=== PATIENT | male | born 1975 | race Caucasian/White ===

== ENCOUNTER 2023-09-27 15:29 | Outpatient (REF) | payer BC, SELFPAY | END 2023-09-27 15:30 | disposition home or self-care (01) | LOC: LBN 15:29 | PROVIDERS: PCP Nurse Practitioner Adult Health; Visit Provider Family Medicine | DX: L72.8 Other follicular cysts of the skin and subcutaneous tissue; L08.89 Other specified local infections of the skin and subcutaneous tissue | CPT/HCPCS: 87070; 87205 ==

== ENCOUNTER 2024-01-02 07:24 | Day surgery (SDC) | payer BC, SELFPAY ==
--- NOTE | 2024-01-01 08:41 | W.PM.DSUDISC ---
Date of service: 01/02/24 Time of Service: 09:24 Discharge Plan Disposition Patient Disposition: Home Condition: Good Discharge Details Reason For Visit: screening colonoscopy Attending Provider: Manish Akins Primary Care Provider: Heather Trotter Home Meds and New Rx's Prescriptions: Continued buspirone 5 mg tablet 5 mg PO BID Qty: 100 1RF Rx Instructions: May increase to 10mg BID for anxiety. Excedrin Extra Strength 250-250-65 mg tablet 2 tab PO ONCE PRN (Reason: Headaches) clindamycin phosphate [Clindacin] 1 % foam 1 applic topical QHS Qty: 50 0RF Rx Instructions: Apply to hairline acne once per day fluoxetine [Prozac] 10 mg capsule 20 mg PO DAILY Rx Instructions: Start with 1 cap daily and may increase to 2 caps daily after 2 weeks Discontinued bisacodyl [Dulcolax (bisacodyl)] 5 mg tablet,delayed release (DR/EC) 5 mg PO ONCE Qty: 4 0RF Rx Instructions: Take per colonoscopy instructions provided by ordering providers office polyethylene glycol 3350 17 gram/dose powder 17 g PO ONCE Qty: 238 0RF Rx Instructions: Take per colonoscopy instructions provided by ordering providers office Discharge Instructions Instructions: Colon polyps Additional Instructions: Manish, we were able to complete your colonoscopy today without any difficulty. I hope you are comfortable and the experience was okay. I did find and removed 2 polyps today. One was medium in size, and the other was extremely small (in fact, this may not even be a true polyp). Regardless, I removed both of these without any difficulty. Both will be sent off for testing, and the information from that report will be used to inform the timing of your next colonoscopy. Those results usually take about a week or 2, and once we have them, the office will be in touch. If you have any questions in the meantime, please do not hesitate to ask. 1. If tolerated, consume a soft, low fiber diet for 1-2 days. 2[address] Do not drive, drink alcohol, operate machinery, make critical decisions, or do activities that require coordination or balance for 24 hours. 3. Because air was put into your colon during the procedure, expelling air from your rectum (passing gas or farting) is normal. 4. You may not have a bowel movement for 1-3 days because of the colonoscopy prep. This is normal. 5. Go directly to the emergency room if you notice any of the following: Develop chills (warm to touch), or if you have a thermometer and your temperature is above 101 Difficulty breathing or difficultly swallowing Persistent vomiting Severe abdominal pain, other than gas cramps Severe chest pain Black, tarry stools Any bleeding ? exceeding one tablespoon 6. Call your physician if the site where your intravenous was started becomes red, swollen, painful, and warm to touch. 7. Your physician has reviewed your pre-procedure medications. Please continue to take those medications as previously ordered. You will be given specific information/education regarding any changes to your medications before leaving. Stand Alone Forms: Anesthesia Discharge InstLeigh, Christin Winters (DSU) Activity:: Activity as Tolerated Diet:: As Tolerated Discharge Orders Discharge Orders: Discharge Order (Routine); Ordered 01/01/24 Ordered By: Manish Akins DS: Diagnosis Discharge Diagnosis (1) Encounter for screening colonoscopy: Status: Acute Asessment and Plan: Follow-up on polypectomy results
--- NOTE | 2024-01-01 08:42 | W.COLOREPORT ---
Date of service: 01/02/24 Time of Service: : Colonoscopy Report Date of procedure: 01/02/24 Pre-op diagnosis general: screening colonscopy Post-op diagnosis procedure note: other (Colon rectal polyps) Procedure: colonoscopy with polypectomy Surgeon: Manish Akins Anesthesia Type: General:No Airway Estimated blood loss (mL): 5 Pathology: other (0.5 cm rectal polyp, less than 0.25 cm polyp at 65 cm) Complications: None Disposition: same day Indications: Manish is a 48 year old man who needs a screening colonoscopy Prep: Miralax/Dulcolax Procedure Start Time: :04 Procedure End Time: : Retraction Time: 11 Findings: 0.5 cm rectal polyp, less than 0.25 cm polyp at 65 cm Procedure Description: After the induction of anesthesia, and with the patient in left lateral decubitus position, I began by performing an external anorectal exam.? Perineum and skin were normal, as was the anal verge.? There was no evidence of external hemorrhoids.? Next, I performed a digital rectal exam.? I did not appreciate any abnormal findings.? Next, I advanced a colonoscope into the rectal vault.? Within the midportion of the rectal vault was a 0.5 cm pedunculated polyp. This was removed with cold snare polypectomy. There was minimal bleeding from the polypectomy site. I performed retroflexion.? This appeared normal.? Using insufflation, I then advanced the colonoscope beyond the rectal folds and into the sigmoid colon before advancing towards the cecum.? The scope was noted to be in the cecum by identification of the ileocecal valve and appendiceal orifice.? I then began withdrawing the colonoscope using repeated irrigation as necessary for full evaluation of the colonic mucosa. Around 65 cm from the anal verge I identified a less than 0.25 cm polyp. ?It appeared flat in character. ?I was able to remove this with a cold forceps polypectomy. ?I examined the site, and there was minimal bleeding. ?Once this was completed, I continued to withdraw the scope and examine the remainder of the colonic mucosa.?Once the scope was withdrawn to the level of the rectum, great care was taken to examine portions of the rectal folds.? Finally, the scope was withdrawn and the patient was brought to the same-day surgery recovery unit as the anesthetic wore off. ?The findings and instructions were shared with the patient prior to discharge. Nerstrand Bowel Prep Nerstrand Bowel Prep Right Colon: 3 Left Colon: 3 Transverse Colon: 3 Total Score: 9
[2024-01-02 07:55] VITALS: BP 127/87; PULSE 70; RESP 16; TEMP 36.1; O2SAT 97
[2024-01-02] MEDS: Lactated Ringers 1,000 ML 80 ML IV (08:20)
--- NOTE | 2024-01-02 08:45 | W.ANESPRE ---
General Info Date of Service Date Performed: 01/02/24 Height: 5 ft 9 in Weight: 118.7 kg Body Mass Index (BMI): 38.6 Surgical Procedure: Operation Date: 01/02/24 08:50 Proposed Procedure Side Surgeon p Ariane Akins MD Meds Allergies and Home Medications Allergies Allergy/AdvReac Type Severity Reaction Status Date / Time No Known Allergies Allergy Verified 01/02/24 07:50 Home Medication ?Medication ?Instructions ?Recorded oowfzat-debwvmpsincec-ctqiawpe 250 2 tab PO ONCE PRN Headaches 08/25/22 mg-250 mg-65 mg tablet (Excedrin Extra Strength) clindamycin phosphate 1 % topical 1 applic topical QHS #50 grams 09/22/22 foam (Clindacin) buspirone 5 mg tablet 5 mg PO BID #100 tabs 10/10/23 fluoxetine 10 mg capsule (Prozac) 20 mg PO DAILY 12/15/23 Current Visit Medications: Current Medications Generic Name Dose Route Start Last Admin Trade Name Freq PRN Reason Stop Dose Admin Ringer's Solution 1,000 mls @ 80 mls/hr 01/02/24 06:00 01/02/24 08:20 IV 01/29/24 23:59 80 mls/hr INFUSION SOBEIDA Administration IV Miscellaneous Supplies 1 each 01/02/24 06:00 Iv Access IV 01/29/24 23:59 DIRECTED SOBEIDA Ondansetron HCl 4 mg 01/01/24 08:43 Ondansetron 4 Mg/2 Ml Vial IVP 01/31/24 08:42 Q4H PRN PRN Nausea / Vomiting Sodium Chloride 0 ml 01/02/24 06:00 Normal Saline Flush 10 Ml Syr IV 01/29/24 23:59 PRN PRN Sodium Chloride 0 ml 01/02/24 06:00 Normal Saline 10 Ml Vial IJ 01/29/24 23:59 DIRECTED PRN Sterile Water 0 ml 01/02/24 06:00 Water,Injection,Sterile 10 Ml Vial IJ 01/29/24 23:59 DIRECTED PRN PFSH Active Problems Active Problems: Problem Status Onset Code Encounter for screening colonoscopy Acute Z12.11 Situational anxiety Acute ~09/2023 F41.8 Infected cyst of skin Acute L72.9, L08.9 Acne Acute L70.9 BMI 37.0-37.9, adult Acute Z68.37 Obstructive sleep apnea Chronic G47.33 Medical History Medical History Headache Excedrin PRN Psychophysiologic insomnia CPAP has helped Lumbago with sciatica, right side Chronic low back pain Medical History Comments:: mother-N/V Surgical History Surgical History H/O wisdom tooth extraction (~1995) Dr Ram Tobacco Smoking/Tobacco Use Status: Never Second hand exposure: No Alcohol Alcohol Intake: current Alcohol intake frequency: a few times a month Alcohol type: beer and hard liquor Details: 2-4 times per month 1-2 at a time Substance Use Substance use: Rarely Substance use type: marijuana Details: alcohol: t-14, marijuana: t-10 Vital Signs and Lab Results Vital Signs Most Recent Vital Signs in EMR: Most Recent Vital Signs Temp Pulse Resp BP Pulse Ox 36.1 C L 70 16 127/87 97 01/02/24 07:55 01/02/24 07:55 01/02/24 07:55 01/02/24 07:55 01/02/24 07:55 Lab Results Blood Type / Crossmatch: No Data to Display Complete Blood Count: No Data to Display Complete Metabolic Panel: No Data to Display Liver Function Panel: No Data to Display Coagulation Panel: No Data to Display Cardiac Panel: No Data to Display Arterial Blood Gas: No Data to Display Venous Blood Gas: No Data to Display Pancreas Panel: No Data to Display Thyroid Panel: No Data to Display Infectious Disease: No Data to Display Blood Cultures: No Data to Display Toxicology Panel: No Data to Display Anesthesia Assessment and Plan Anesthesia History Personal History: No History of Anesthesia Complications Family History: No Family History of Anesthesia Complications Exercise Tolerance Exercise Tolerance: Metabolic Equivalents>4 Pertinent Negatives Pertinent Negatives: No Symptoms of GERD, No Major Cardiovascular Symptoms or Complaints, No Major Pulmonary Symptoms or Complaints and No History of CVA/TIA Cardiac & Pulmonary Exam Cardiac Exam: Normal S1/S2 Heart Sounds Pulmonary Exam: Clear Bilateral Breath Sounds Implantable Cardiac Device Does patient have a Pacemaker or an ICD?: No Airway Exam Known Difficult Airway: No Mallampati Class: 2 Mouth Opening: Normal (> 3cm) Thyromental Distance: Greater than 3 cm Neck Range of Motion: Full ROM Neck Circumference: Normal Teeth Condition: Normal Dentition ASA Classification ASA Score: ASA 2 Emergency Case?: No NPO Status NPO Status: NPO Clears >2 hours, Solids >8 hours Anesthesia Plan Resuscitation Status: Full Code Anesthesia Technique: General Anesthesia Airway Planned: Natural Airway Monitors Used: Standard Monitors
[2024-01-02 09:00] VITALS: BMI 38.6
--- NOTE | 2024-01-02 09:06 | BOWEL_PTH ---
PATIENT: Manish Brownlee LOC: [facility] U#:[id number] AGE/SX: 48/M ROOM: RE01/02/[address]: Manish Akins MD : 1975 BED: DIS: 01/02/2024 SPEC #: [id number] RECD: 01/02/24 12:43 STATUS: SENA RE #: [id number] MARIANN: 01/02/24 09:[address]: Manish Akins DEPT: Surgical Specimen RECD BY: Alexandra Bender ENTERED: 01/02/24 12:44 SP TYPE: Bowel OTHR DR: Heather Trotter APRN Tissues: 1 - BIOPSY BOWEL 2 - BIOPSY BOWEL Procedures: GROSS AND MICRO LEVEL 4 Comments: [id number]
[2024-01-02 09:22] VITALS: BP 111/59; PULSE 68; RESP 16; TEMP 36.4; O2SAT 96
[2024-01-02 09:47] VITALS: BP 115/85; PULSE 61; RESP 16; TEMP 36.3; O2SAT 98
--- NOTE | 2024-01-02 09:58 | W.ANESPOSTOP ---
Postoperative Evaluation Date, Time and Location Date Performed: 01/02/24 Time Performed: 09:47 Patient Location: Day Surgery Unit Vital Signs Most Recent Imported Vital Signs: Most Recent Vital Signs Temp Pulse Resp BP Pulse Ox 36.3 C L 61 16 115/85 98 01/02/24 09:47 01/02/24 09:47 01/02/24 09:47 01/02/24 09:47 01/02/24 09:47 Pain Score Most Recent Pain Score: Most Recent Pain Score Pain Level 0 01/02/24 09:47 Assessment Mental Status: Awake (Alert & Oriented to Patient Baseline) Airway and Respiratory Function: Patent airway with normal (patient baseline) respiratory exam Cardiovascular Function: Hemodynamically Stable Hydration Status: Adequately Hydrated Nausea & Vomiting: No Nausea or Vomiting Pain: Pt. Denies Any Pain Peripheral Nerve Block: Patient did not receive a nerve block
== END 2024-01-02 10:05 | disposition home or self-care (01) ==
LOC: SUR 07:25
PROVIDERS: PCP Nurse Practitioner Adult Health; Visit Provider Surgery
PROC: 0DJD8ZZ Inspection of Lower Intestinal Tract, Via Natural or Artificial Opening Endoscopic (ICD-10-PCS; CPT 45378; principal; 2024-01-02 08:45)
DX: Z12.11 Encounter for screening for malignant neoplasm of colon (principal); D12.4 Benign neoplasm of descending colon; D12.8 Benign neoplasm of rectum
CPT/HCPCS: 45385; 45380; 88305; J2704

== ENCOUNTER 2024-03-20 09:39 | Outpatient (REF) | payer BC, SELFPAY ==
--- NOTE | 2024-03-20 08:45 | SKI_PTH ---
PATIENT: Manish Brownlee LOC: [facility] U#:[id number] AGE/SX: 48/M ROOM: RE03/20/[address]: Chidi Alaniz DO : 1975 BED: DIS: 03/20/2024 SPEC #: [id number] RECD: 03/20/24 13:13 STATUS: SENA JOYCE #: [id number] MARIANN: 03/20/24 08:[address]: Chidi Alaniz DEPT: Surgical Specimen RECD BY: Alexandra Bender ENTERED: 03/20/24 13:14 SP TYPE: EPIFANIO ROWLEY DR: Heather Trotter APRN Tissues: 1 - SKIN BIOPSY(SHAVE/PUNCH) Procedures: SKIN LEVEL 4 Comments: [id number]
== END 2024-03-20 09:40 | disposition home or self-care (01) ==
LOC: LBN 09:39
PROVIDERS: PCP Nurse Practitioner Adult Health; Visit Provider Emergency Medicine
DX: L57.0 Actinic keratosis (principal); L82.1 Other seborrheic keratosis
CPT/HCPCS: 88305

== ENCOUNTER 2024-08-30 14:42 | Emergency (ER) | payer BC, SELFPAY ==
--- NOTE | 2024-08-30 14:45 | RT.EKG_ITS ---
APPROVED REPORT Exam: Resting ECG Reason for Exam: Tachycardia Patient Location: E HR:95 bpm ECG Measurements Heart Rate 95 AXIS MI 142 P -43 QRSd 93 QRS 29 QT 340 T 60 QTc 429 Conclusion Sinus rhythm...normal P axis, V-rate 60- 99 ST elev, probable normal early repol pattern...ST elevation, age<55 No Occlusion VA
[2024-08-30 14:52] VITALS: BP 105/76; PULSE 110; RESP 16; TEMP 36.2; O2SAT 97
[2024-08-30 15:03] VITALS: BP 105/76; PULSE 110; RESP 16; TEMP 36.2; O2SAT 97
--- NOTE | 2024-08-30 15:22 | W.ED.GENAD ---
Discharge Plan Disposition Patient Disposition: Home Discharge Details Clinical Impression: Nausea vomiting and diarrhea Primary Care Provider: Heather Trotter ED Provider: Christopher Hdz Home Meds and New Rx's Prescriptions: Continued Excedrin Extra Strength 250-250-65 mg tablet 2 tab PO ONCE PRN (Reason: Headaches) clindamycin phosphate [Clindacin] 1 % foam 1 applic topical QHS Qty: 50 0RF Rx Instructions: Apply to hairline acne once per day fluoxetine 20 mg capsule 20 mg PO DAILY Qty: 90 3RF Zepbound 5 mg/0.5 mL pen injector 5 mg subcut QWEEK Discharge Instructions Instructions: Nausea and Vomiting, Adult ED Additional Instructions: You were seen in the emergency department for nausea and vomiting. Your blood work shows that your kidneys are working well. As we discussed if you develop abdominal pain begin vomiting and do not stop or if you develop fevers please return immediately to the emergency department. Otherwise please follow-up with your primary care provider next week. Discharge Data Discharge Date/Time-TO BE ENTERED AT DEPARTURE: 08/30/24 17:16 HPI General Date/Time Provider Initiated Documentation: 08/30/24 15:14. HPI Narrative: MDM This is an overall very well-appearing mildly tachycardic but afebrile 48-year-old male with nausea vomiting diarrhea for which patient will receive IV fluids and ondansetron with Mylanta given patient's reassuring exam. I considered appendicitis however the patient has not had a fever and has no right lower quadrant tenderness so I did not feel that he requires CT scan of the abdomen. Similarly in the absence of left lower quadrant tenderness my suspicion for diverticulitis was low. No pain out of proportion to suggest necrotizing soft tissue infection. Given reassuring exam and no significant pain I was not suspicious for mesenteric ischemia. No testicular pain to suggest testicular torsion. Patient has been vomiting but has no crepitance nor chest wall tenderness to suggest esophageal rupture. Patient did have an ECG performed from triage which showed normal sinus rhythm. He had no significant ST segment abnormalities and no signs of occlusion [place]. He does have an elevated BMI so will send a lipase to assess for pancreatitis. No dysuria or frequency to suggest UTI. No black or bloody stools to suggest GI bleed. He does take GLP-1 receptor agonist, tirzepatide, with known side effects of nausea and vomiting diarrhea so this certainly could be side effect. 4:35 PM Comprehensive metabolic panel showing no JUDI. Very mild anion gap. Normal bicarbonate??not consistent with DKA. 6:30 PM Late charting due to patient care. Patient felt markedly improved following IV fluids. His tachycardia resolved. He was not having any abdominal pain. We discussed at length that he should return to the ED if you develop recurrent vomiting if you develop abdominal pain fevers or had any other concerns. He understood his return indications and was discharged with empiric trial of expectant outpatient management. HPI The patient presents for evaluation of nausea, vomiting, diarrhea, and heartburn. He is accompanied by his . He began experiencing excessive belching yesterday, which was more pronounced than usual. This was followed by an episode of diarrhea during dinner last night, which has since persisted. He started vomiting in the middle of the night and has vomited approximately 10 times since then. His last episode of vomiting occurred about an hour ago. He continues to feel nauseous and has attempted to eat a piece of dry toast today but was unable to finish it due to vomiting. He has been consuming Powerade. He reports no recent illness in his close contacts. He reports no chest pain or respiratory distress. He reports no fevers, dysuria, or abnormal rashes on his abdomen. He had a mild cold last week but reports no significant cough or fever. He reports no presence of melena or hematochezia. He has attempted to manage his symptoms with Pepto-Bismol, but this has not been effective. He has no history of abdominal surgeries or kidney stones. He underwent a colonoscopy in 12/2023, which did not reveal any concerning findings. He has a history of urinary tract infections but does not believe his current symptoms are related to this. He occasionally takes Excedrin but not on a daily basis. He is a non-smoker and does not consume alcohol daily, although he had a glass of wine last night. He reports no use of intravenous drugs. He also reports heartburn and notes that burping often precedes vomiting. Exam General: Well-appearing in no acute distress speaking in complete sentences. Head: Normocephalic, atraumatic. Eye: Extraocular eye movements intact. No conjunctival injection. No scleral icterus. Ear, nose, mouth, throat: Grossly normal inspection. Normal voice, handling secretions normally. Neck: Trachea midline. Cardiovascular: Well-perfused distal extremities. Respiratory: Nonlabored respiration. Clear lungs bilaterally. Chest wall: No chest wall tenderness. No crepitance. Gastrointestinal: Nondistended abdomen. Soft. Nontender. No rebound. No guarding. Musculoskeletal: No edema. Moving all 4 extremities spontaneously. Skin: Normal for age and race, grossly normal temperature and turgor. No acute rash. Neurologic: Alert and appropriate, no apparent acute deficits. Psychiatric: Mood and manner are appropriate. Grooming and personal hygiene are appropriate. Related Data Home Medications ?Medication ?Instructions ?Recorded ?Confirmed focvowe-apyeyeeocimcc-mhcpmsro 250 2 tab PO ONCE PRN Headaches 08/25/22 08/30/24 mg-250 mg-65 mg tablet (Excedrin Extra Strength) clindamycin phosphate 1 % topical 1 applic topical QHS #50 grams 09/22/22 08/30/24 foam (Clindacin) fluoxetine 20 mg capsule 20 mg PO DAILY #90 caps 02/22/24 08/30/24 tirzepatide (weight loss) 5 mg/0.5 5 mg subcut QWEEK 08/30/24 08/30/24 mL subcutaneous pen injector (Zepbound) Previous Rx's ?Medication ?Instructions ?Recorded clindamycin phosphate 1 % topical 1 applic topical QHS #50 grams 09/22/22 foam (Clindacin) fluoxetine 20 mg capsule 20 mg PO DAILY #90 caps 02/22/24 Allergies Allergy/AdvReac Type Severity Reaction Status Date / Time No Known Allergies Allergy Verified 08/30/24 14:58 General Stated Complaint: Nausea/Vomit/Diar ASTON: 3 Course Vital Signs Vital signs: Vital Signs Temperature 36.2 C L 08/30/24 14:52 Pulse 110 H 08/30/24 14:52 Respiratory Rate 16 08/30/24 14:52 Blood Pressure 105/76 08/30/24 14:52 Pulse Oximetry 97 08/30/24 14:52 Temperature 36.2 C L 08/30/24 15:03 Pulse 110 H 08/30/24 15:03 Respiratory Rate 16 08/30/24 15:03 Blood Pressure 105/76 08/30/24 15:03 Blood Pressure Position Sitting 08/30/24 15:03 Pulse Oximetry 97 08/30/24 15:03 Oxygen Delivery Method Room Air 08/30/24 15:03 Oxygen Flow Rate 0 08/30/24 15:03 Pain Level 5 08/30/24 15:03 Medical Decision Making Quality:SDOH Health Related Social Needs: Health related social needs details N/A PFSH All Active Problems (Updated 08/30/24 @ 17:03 by Christopher Hdz MD) Nausea vomiting and diarrhea (Acute) Encounter for screening colonoscopy (Acute) Situational anxiety (Acute ~09/2023) Infected cyst of skin (Acute) Acne (Acute) hairline BMI 37.0-37.9, adult (Acute) Obstructive sleep apnea (Chronic) CPAP Medical History Headache Excedrin PRN Psychophysiologic insomnia CPAP has helped Lumbago with sciatica, right side Chronic low back pain Surgical History History of colonoscopy (~12/2023) H/O wisdom tooth extraction (~1995) Dr Ram Family History Paternal Grandfather Cancer Primary ?lung ca ( 91yo) Maternal Grandmother Diabetes Paternal Grandmother Diabetes Heart disease Hypertension Father Diabetes Hypertension History of basal cell cancer Mother History of basal cell cancer Hyperlipidemia Maternal Grandfather Heart disease major [place] 65yo Social History Smoking/Tobacco Use Status: Never Second Hand Exposure: No Smoking risk assessment performed?: Yes Alcohol Intake: current Alcohol Intake frequency: holidays/special occasions only Alcohol type: beer and hard liquor Details: 2-4 times per month 1-2 at a time Drug use: Occasionally Substance use type: marijuana Adopted: No Caregiver/Support person: No Foster care: No Household members: spouse and children Housing: house Number of Children: 2 number of grandchildren: 0 Communication Needs: None Education Level: master's degree Do you need help understanding health information?: Never current occupation: Publishing/ Marketing Pets and animals: Yes (1) Pets and animals: dog(s) Sexually active: Yes Do you think of yourself as: lesbian/marvin/homosexual Current gender identity: male What is your relationship status?: How often do you talk on the phone with friends or family?: three or more times per week How often do you get together with friends or relatives?: three or more times per week How often do you attend taoist or methodist services?: decline to answer Do you belong to any clubs or organized social groups?: no Panel score (0-1 are the most socially isolated patients): 2 What type of physical activity do you participate in: bicycling Duration: 30-45 minutes/day Frequency: 5-6 times per week Destinee/Yazidism: None Seatbelt use: always Helmet use: Yes Helmet use: always Drive intox or ride w/intox warehouse delivery driver: No Do you feel safe at home: Yes Do you feel safe in your relationship?: Yes Additional Social history: [employer]
[2024-08-30 15:42] VITALS: PULSE 104
[2024-08-30] MEDS: Normal Saline 1,000 ML 1000 ML IV (15:43)
[2024-08-30] MEDS: Mylanta Suspension 30 ML CUP PO (15:44)
[2024-08-30] MEDS: Ondansetron 4 MG/2 ML VIAL IVP (15:44)
[2024-08-30 15:58] LABS: Abs Immature Grans 0.05 10^3/uL (0.0-0.06); Absolute Basophil Count 0.02 10^3/uL (0.0-0.2); Absolute Lymphocyte Count 0.89 10^3/uL (1.2-3.4); Absolute Monocyte Count 0.76 10^3/uL (0.1-0.8); Absolute Neutrophil Count 10.57 10^3/uL (1.2-6.7); Basophils % 0.2 %; Eosinophils % 1.4 %; HCT 49.9 % (40.0-50.0); HGB 17.5 g/dL (13.5-17.5); Immature Grans % 0.4 %; Lymphocytes % 7.1 %; MCH 30.4 pg (27.0-33.0); MCHC 35.1 % (32.0-36.0); MCV 87 fL (80-95); MPV 10.9 fL (8.0-11.0); Monocytes % 6.1 %; Neutrophils % 84.8 %; Platelet Count 285 10^3/uL (130-400); RBC 5.75 10^6/uL (4.36-5.78); RDW 12.9 % (11.8-14.1); RDW-SD 40.3 fL; WBC 12.47 10^3/uL (4.4-10.8)
[2024-08-30 15:59] LABS: Absolute Eosinophil Count 0.17 10^3/uL (0.0-0.7)
[2024-08-30 16:12] LABS: Lipase 23 U/L (<78)
[2024-08-30 16:17] LABS: ALT 22 U/L (16-63); AST 16 U/L (15-37); Albumin 4.3 g/dL (3.4-5.0); Alkaline Phosphatase 94 U/L (46-116); Anion Gap 12.4 mmol/L (3-11); BUN 19 mg/dL (7-18); Bilirubin, Total 0.8 mg/dL (0.2-1.0); CO2 25.6 mmol/L (21.0-32.0); CREATININE 1.2 mg/dL (0.70-1.30); Calcium 9.9 mg/dL (8.5-10.1); Chloride 101 mmol/L (98-107); Estimated GFR 75.53 (mL/min/1.73m2); Glucose 100 mg/dL (74-106); Potassium 3.8 mmol/L (3.5-5.1); Sodium 139 mmol/L (136-145); Total Protein 8.1 g/dL (6.4-8.2)
[2024-08-30 17:20] VITALS: PULSE 82
== END 2024-08-30 17:16 | disposition home or self-care (01) ==
PROVIDERS: Emergency Provider Emergency Medicine; PCP Nurse Practitioner Adult Health
DX: R11.2 Nausea with vomiting, unspecified (principal); R19.7 Diarrhea, unspecified
CPT/HCPCS: 99284; 99283; 36415; 96374; 80053; 83690; 93005; 96361; 85025; 93010; J2405